=== PATIENT | male | born 1940 | race Caucasian/White ===

== ENCOUNTER 2017-05-18 13:57 | Observation (INO) | payer OTHER ==
[2017-05-18 19:07] VITALS: BP 188/78; PULSE 57; TEMP 97.8
[2017-05-18 19:48] VITALS: BP 130/72; PULSE 52; PULSE 63; TEMP 98.1
[2017-05-18] MEDS ORDERED: ZYLOPRIM 100MG100 MG PO (21:55)
[2017-05-18] MEDS ORDERED: ELIQUIS 5MG PO (21:57)
[2017-05-18] MEDS ORDERED: DULCOLAX STOOL100 MG PO (21:58)
[2017-05-18] MEDS ORDERED: ARICEPT10 MG PO (21:59)
[2017-05-18] MEDS ORDERED: DOXYCYCLINE 50M50 MG PO (22:00)
[2017-05-18] MEDS ORDERED: PROSCAR 5MG5 MG PO (22:00)
[2017-05-18] MEDS ORDERED: FOLIC ACID 11 MG/TA1 PO (22:01)
[2017-05-18] MEDS ORDERED: LASIX 20MG TABL20 MG PO (22:03)
[2017-05-18] MEDS ORDERED: NORCO 325 MG-101 TAB PO (22:04)
[2017-05-18] MEDS ORDERED: CEPHALEXIN500 M1 PO (22:05)
[2017-05-18] MEDS ORDERED: NIZORAL CREAM15 GM TP (22:06)
[2017-05-18] MEDS ORDERED: METROCREAM CREA45 GM TP (22:08)
[2017-05-18] MEDS ORDERED: PAXIL 20MG20 MG PO (22:09)
[2017-05-18] MEDS ORDERED: MILLIPRED DP5 MG PO (22:10)
[2017-05-18] MEDS ORDERED: BETAPACE 80MG80 MG PO (22:12)
[2017-05-18] MEDS ORDERED: BACITUD TOP (22:13)
[2017-05-18] MEDS ORDERED: VITAMIN D 50,1.25 MG PO (22:14)
[2017-05-18] MEDS ORDERED: ACIPHEX20 MG PO (22:15)
[2017-05-18] MEDS ORDERED: FLOMAX 0.40.4 MG/CAP PO (22:15)
[2017-05-19 02:44] VITALS: BP 184/90; PULSE 63; TEMP 98.5
[2017-05-19 06:17] VITALS: BP 174/93; PULSE 113; TEMP 98.8
[2017-05-19 10:22] VITALS: BP 133/65; PULSE 79; TEMP 97.5
[2017-05-19 14:51] VITALS: BP 138/88; PULSE 59; TEMP 98.2
[2017-05-19 16:32] VITALS: BP 137/89; PULSE 58; TEMP 98.3
[2017-05-19 22:27] VITALS: BP 174/81; PULSE 58; TEMP 98.5
[2017-05-20 06:18] VITALS: BP 174/93; PULSE 66; TEMP 99.1
[2017-05-20 09:49] VITALS: BP 130/75; PULSE 66; TEMP 98.3
[2017-05-20] MEDS ORDERED: PERCOCET 325 MG1 TA2 PO (11:54)
[2017-05-20 13:25] VITALS: BP 95/50; PULSE 102; TEMP 98.6
== END 2017-05-20 12:45 | disposition home or self-care (01) ==
LOC: SURG 17:00
DX: T83.098A Other mechanical complication of other urinary catheter, initial encounter (principal); Z85.51 Personal history of malignant neoplasm of bladder; G30.9 Alzheimer's disease, unspecified; F02.80 Dementia in other diseases classified elsewhere, unspecified severity, without behavioral disturbance, psychotic disturbance, mood disturbance, and anxiety; Z96.659 Presence of unspecified artificial knee joint; Z79.01 Long term (current) use of anticoagulants
CPT/HCPCS: C1769; G0378; G0379; J0690; J1170; J7120